=== PATIENT | female | born 1950 | race Caucasian/White ===

== ENCOUNTER 2018-06-14 05:58 | Day surgery (SDC) | payer MEDICARE, OTHER ==
[2018-06-14] MEDS ORDERED: DIPRIVAN 200 MG/20 ML IV ONE (05:59)
[2018-06-14 06:35] VITALS: O2SAT 95
[2018-06-14] MEDS ORDERED: Lactated Ringers 1,000 ML IV SCH (07:00)
[2018-06-14 09:08] VITALS: BP 122/70; PULSE 70
--- NOTE | 2018-06-14 09:08 | OP ---
SURGERY DATE/TIME: 06/14/2018 0800 PREOPERATIVE DIAGNOSIS: History of colon cancer. POSTOPERATIVE DIAGNOSIS: Normal colon status post right hemicolectomy. PROCEDURE: Colonoscopy. SURGEON: Dr. Kwan. ANESTHESIA: MAC. Anesthesia given by anesthesia department. HISTORY: The patient is a 68 year-old white female presenting now for colonoscopy. She reports it has been ten years since her last colonoscopy. She reports she had colon cancer previously with right hemicolectomy. The patient was felt the need to have endoscopic evaluation. She was reappraised of the risks of the procedure including the risk of perforation, phlebitis, untoward reaction to medication, bleeding and missed lesions. The patient verbalized her understanding and desired to have the procedure performed. DESCRIPTION OF PROCEDURE: The patient was given the medications by the anesthesia department. She had continuous pulse oximetry, ECG monitoring, intermittent blood pressure monitoring and tidal CO2 monitoring during the examination. She was placed in the left lateral decubitus position. A digital rectal examination was performed and revealed normal anal sphincter tone and no masses. The flexible Olympus pediatric colonoscope was used to intubate the rectum. A view of the colon was developed sequentially to the area of the anastomosis. Upon insertion and withdrawal, including a retroflex view in the rectum, no mucosal lesions were encountered. The scope was removed from the patient who tolerated the procedure well and was sent back to OP recovery in good condition. The prep was noted to be good.
== END 2018-06-14 09:10 | disposition home or self-care (01) ==
LOC: SDC 05:58
PROVIDERS: ATTEND Family Medicine
DX: Z85.038 Personal history of other malignant neoplasm of large intestine (principal); Z79.899 Other long term (current) drug therapy
CPT/HCPCS: J2704